=== PATIENT | female | born 1990 | race American Indian/Alaskan Native ===

== ENCOUNTER 2018-07-21 16:41 | Emergency (ER) | payer OTHER ==
[2018-07-21 17:01] VITALS: BP 127/80
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
[2018-07-21] MEDS ORDERED: NORCO 5/325 PO ONE (17:50)
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
== END 2018-07-21 18:30 | disposition home or self-care (01) ==
LOC: ED 16:41
DX: M79.661 Pain in right lower leg (principal); M79.662 Pain in left lower leg; M79.632 Pain in left forearm; V49.49XA Driver injured in collision with other motor vehicles in traffic accident, initial encounter; Y93.89 Activity, other specified; Y92.89 Other specified places as the place of occurrence of the external cause; Y99.8 Other external cause status

== ENCOUNTER 2021-12-20 20:51 | Emergency (ER) | payer SELFPAY ==
[2021-12-20] MEDS ORDERED: ONDANSETRON 4 MG/2 ML INJ IV ONE (20:55)
[2021-12-20] MEDS ORDERED: MORPHINE 4 MG/1 ML INJ IV ONE (20:55)
[2021-12-20] MEDS ORDERED: SODIUM CHLORIDE 0.9% 1000 ML 1,000 ML IV ONE (20:55)
[2021-12-20] MEDS ORDERED: TETANUS,DIPH,PERTUSS(ACELL) VACCINE 0.5 ML SYRINGE IM ONE (20:57)
[2021-12-20 21:53] LABS: Alanine Aminotransferase 22 units/L (7-56); Albumin 4.5 g/dL (3.9-5); BUN/Creatinine Ratio 14; Blood Urea Nitrogen 13 mg/dL (7-17); Calcium 9.7 mg/dL (8.4-10.2); Hemolysis Index 9
[2021-12-20 22:01] LABS: Basophils % (Auto) 0.4 % (0.0-1.8); Hematocrit 42.9 % (30.3-42.9); Hemoglobin 13.7 gm/dl (10.1-14.3); Lymphocytes # (Auto) 1.2 K/mm3 (1.2-5.4); Mean Corpuscular HGB Conc 32 % (30-34); Mean Corpuscular Volume 91 fl (79-97); Monocytes # (Auto) 1.1 K/mm3 (0.0-0.8); Monocytes % (Auto) 9.9 % (0.0-7.3); Platelet Count 324 K/mm3 (140-440); Red Blood Count 4.71 M/mm3 (3.65-5.03); Red Cell Distribution Width 12.7 % (13.2-15.2)
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
[2021-12-20 22:09] LABS: INR 0.93 (0.87-1.13)
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
[2021-12-20 23:04] VITALS: BP 102/70
--- NOTE | 2021-12-24 11:57 | Electrocardiograph Report ---
[facility] Test Date: 2021-12-20 Test Time: 21:16:35 Pat Name: KATHLEEN BARBOZA Department: Room: Gender: F [employer] Operator: CHRISTA Landa : 1990 Requested By: DARIAN ENRIQUE Order Number: [id number] Reading MD: Adi Burnham Measurements Intervals [place] Rate: 99 P: 58 WI: 141 QRS: -18 QRSD: 83 T: 8 QT: 352 QTc: 451 Interpretive Statements Sinus rhythm No previous ECG available for comparison Electronically Signed On 12-24-2021 11:56:49 EDT by Adi Burnham
== END 2021-12-20 23:26 | disposition home or self-care (01) ==
LOC: ED 20:51
DX: S41.132A Puncture wound without foreign body of left upper arm, initial encounter (principal); F17.200 Nicotine dependence, unspecified, uncomplicated; Z79.899 Other long term (current) drug therapy; W34.09XA Accidental discharge from other specified firearms, initial encounter; Y93.89 Activity, other specified; Y92.89 Other specified places as the place of occurrence of the external cause; Y99.8 Other external cause status
CPT/HCPCS: 12002; 36415; 71045; 73060; 73090; 73206; 80053; 82550; 85025; 85610; 90471; 90715; 93005; 96365; 96375; 99284; J0690; J2270; J2405; J7030; Q9967; 80320; G0480